=== PATIENT | male | born 1960 | race Caucasian/White ===

== ENCOUNTER 2020-02-26 19:36 | Emergency (ER) | payer OTHER ==
[2020-02-26 19:50] VITALS: BP 157/96; PULSE 95; RESP 16; TEMP 97.7
--- NOTE | 2020-02-26 20:43 | ED ---
Lower Extremity Injury HPI - General Chief Complaint: Extremity Injury, Lower Stated Complaint: hip pain Time Seen by Provider: 02/26/20 20:05 Source: patient Mode of arrival: ambulatory Limitations: no limitations - History of Present Illness Initial Comments: Patient is a 59-year-old male presenting to emergency Department with complaints of left hip pain 3 days. Patient states 3 days ago he went to push a large heavy box backwards with his left leg and felt a pop in his left posterior hip. Patient states the last few days the pain has been worse and he fears he did something to his hip. States the pain is on his left posterior gluteal with some mild radiation into the hamstring. He denies any previous injuries to his left hip, no prior surgeries. Denies history of blood clots. Denies fever, chills. He has no further complaints at this time. - Related Data Allergies Allergy/AdvReac Type Severity Reaction Status Date / Time No Known Allergies Allergy Verified 02/26/20 19:50 Review of Systems ROS Statement: Those systems with pertinent positive or pertinent negative responses have been documented in the HPI. ROS Other: All systems not noted in ROS Statement are negative. Past Medical History Past Medical History: Asthma Additional Past Medical History / Comment(s): gout, History of Any Multi-Drug Resistant Organisms: None Reported Past Surgical History: No Surgical Hx Reported Past Psychological History: No Psychological Hx Reported Smoking Status: Current every day smoker, Former smoker Past Alcohol Use History: Occasional Past Drug Use History: None Reported General Exam - General Exam Comments Initial Comments: GENERAL: Patient is well-developed and well-nourished. Patient is nontoxic and in no acute distress. HEAD: Atraumatic, normocephalic. EYES: Pupils equal round and reactive to light, extraocular movements intact, sclera anicteric, conjunctiva are normal. Eyelids were unremarkable. ENT: TMs normal, nares patent, oropharynx clear without exudates. Moist mucous membranes. NECK: Normal range of motion, supple without lymphadenopathy or JVD. LUNGS: Unlabored respirations. Breath sounds clear to auscultation bilaterally and equal. No wheezes rales or rhonchi. HEART: Regular rate and rhythm without murmurs, rubs or gallops. ABDOMEN: Soft, nontender, normoactive bowel sounds. No guarding, no rebound. No masses appreciated. : Deferred MUSCULOSKELETAL: Pain with palpation at the left SI joint, left upper hamstring. Pain with resistive motion. He is neurovascular intact. Full left hip range of motion. No pitting or edema. No clubbing or cyanosis. NEUROLOGICAL: Patient is alert and oriented x 3. Motor and sensory are also intact. Normal speech, normal gait. PSYCH: Normal mood, normal affect. SKIN: Warm, Dry, normal turgor, no rashes or lesions noted. Limitations: no limitations Course Vital Signs 02/26/20 19:44 Temperature 97.7 F Pulse Rate 95 Respiratory 16 Rate Blood Pressure 157/96 O2 Sat by Pulse 97 Oximetry Medical Decision Making - Medical Decision Making Patient is 59-year-old male here for left hip pain 3 days after pushing a box backward with the back of his left leg. No prior injuries or surgeries. X-rays reveal no acute fractures dislocations a left hip. Discussed with patient this is most likely a strain of his left hamstring. Recommended ice to the area, heat, ibuprofen for discomfort. I recommended limiting squatting activities, heavy lifting. If symptoms persist he can follow-up with his orthopedic and 1-2 weeks. He is in agreement with this plan of care. He is stable for discharge. Disposition Clinical Impression: Left hamstring muscle strain Disposition: HOME SELF-CARE Condition: Stable Instructions (If sedation given, give patient instructions): Hamstring Injury (ED) Additional Instructions: Please return to the Emergency Department if symptoms worsen or any other concerns. Recommend alternating between heat, ice. May take Aleve or Motrin for discomfort. If symptoms persist after 1-2 weeks, follow up with orthopedic doctor as discussed. Is patient prescribed a controlled substance at d/c from ED?: No Referrals: None,Stated [Primary Care Provider] - 1-2 days
--- NOTE | 2020-02-26 20:54 | XR ---
EXAMINATION TYPE: XR Hip Complete LT DATE OF EXAM: 02/26/2020 COMPARISON: NONE HISTORY: Hip pain TECHNIQUE: 2 views FINDINGS: There is no sign of fracture nor dislocation. Hip joint space is fairly normal. Sacroiliac joint appears normal. IMPRESSION: Negative left hip exam.
== END 2020-02-26 21:25 | disposition home or self-care (01) ==
LOC: EC 19:36
DX: S76.312A Strain of muscle, fascia and tendon of the posterior muscle group at thigh level, left thigh, initial encounter (principal); F17.200 Nicotine dependence, unspecified, uncomplicated; X50.0XXA Overexertion from strenuous movement or load, initial encounter
CPT/HCPCS: 73502; 99283